=== PATIENT | female | born 1940 | race Caucasian/White ===

== ENCOUNTER → 2016-12-27 | Outpatient (CLI) | payer MEDICARE | LOC: CT 13:00 | DX: M47.816 Spondylosis without myelopathy or radiculopathy, lumbar region (principal); M48.56XA Collapsed vertebra, not elsewhere classified, lumbar region, initial encounter for fracture; M51.37 Other intervertebral disc degeneration, lumbosacral region | CPT/HCPCS: 72131 ==

== ENCOUNTER 2021-01-12 12:19 | Inpatient (IN) | payer MEDICARE ==
[~2021-01-12] VITALS: Ht 165.1 cm; Wt 127.0 kg
[~2021-01-12 12:19] MED LIST: ACIDOPHILUS LACT1 GM MC; BACTRIM DS TAB1 EACH PO; CARBAMAZEPINE100 MG PO; CEFUROXIME250 MG PO; CYMBALTA 30 MG30 MG PO; ECOTRIN81 MG PO; ELIQUIS5 MG PO; FOLIC ACID 1 MG1 MG PO; IPRAT-ALBUT 0.5-3 ML NEB; KEFLEX CAP 500500 MG PO; LEVOFLOXACIN500 MG PO; LIPITOR TAB 2020 MG PO; MYRBETRIQ50 MG PO; NEURONTIN600 MG PO; NORCO 10-325 T1 EACH PO; NORVASC 5 MG TAB5 MG PO; OMNICEF 300 MG300 MG PO; PERCOCET 10-321 EACH PO; TENORMIN 25 MG25 MG PO; TESSALON PERLE100 MG PO; ZESTRIL40 MG PO
[2021-01-12 15:32] LABS: HEMOGLOBIN 16.3 gm/dl (12.3-15.3); RED BLOOD COUNT 5.71 M/UL (4.00-5.10); WHITE BLOOD COUNT 9.5 K/UL (4.5-11.0)
[2021-01-12 16:03] LABS: BUN/CREATININE RATIO 22 (0-10)
--- NOTE | 2021-01-12 23:40 | NUR ---
UNABLE TO OBTAIN ADMISSION AND HOME MEDICATIONS FROM PATIENT DUE TO ALTERED MENTAL STATUS. SPOKE WITH SON KOREY ON THE PHONE AND HE WAS ABLE TO GIVE PT'S HISTORY, ETC. HOWEVER, HE WAS UNABLE TO CONFIRM PT'S MEDICATIONS. THE ONLY MEDICATION HE WAS ABLE TO CONFIRM WAS THE ELIQUIS. KOREY STATED THAT THE PT LIVED ALONE AND HAS A ER MANAGER THAT COMES AND STAYS WITH HER AND MANAGES HER MEDICATIONS. KOREY GAVE ME THE CARETAKERS NAME AND NUMBER AND TOLD ME THAT SHE COULD GIVE ME A LIST OF HER MEDICATIONS. TRIED TO CALL THE ER MANAGER, BUT NO ONE ANSWERED. WILL TRY TO CALL HER BACK.
[2021-01-13 05:35] LABS: HEMOGLOBIN 15.4 gm/dl (12.3-15.3); RED BLOOD COUNT 5.5 M/UL (4.00-5.10)
[2021-01-13 05:47] LABS: BUN/CREATININE RATIO 20 (0-10)
[2021-01-13] MEDS ORDERED: TEGRETOL XR100 MG PO (12:26)
[2021-01-14 06:13] LABS: HEMOGLOBIN 15.9 gm/dl (12.3-15.3); RED BLOOD COUNT 5.58 M/UL (4.00-5.10); WHITE BLOOD COUNT 10.5 K/UL (4.5-11.0)
[2021-01-14 06:32] LABS: BUN/CREATININE RATIO 20 (0-10)
[2021-01-15 05:39] LABS: HEMOGLOBIN 17.5 gm/dl (12.3-15.3); WHITE BLOOD COUNT 11.2 K/UL (4.5-11.0)
[2021-01-15 05:43] LABS: RED BLOOD COUNT 6.18 M/UL (4.00-5.10)
[2021-01-15 05:57] LABS: BUN/CREATININE RATIO 25 (0-10)
[2021-01-16 05:43] LABS: HEMOGLOBIN 17.1 gm/dl (12.3-15.3); RED BLOOD COUNT 6.35 M/UL (4.00-5.10)
[2021-01-16 05:44] LABS: WHITE BLOOD COUNT 14.7 K/UL (4.5-11.0)
[2021-01-16 06:09] LABS: BUN/CREATININE RATIO 40 (0-10)
[2021-01-17 02:50] LABS: HEMOGLOBIN 17.7 gm/dl (12.3-15.3); RED BLOOD COUNT 6.24 M/UL (4.00-5.10); WHITE BLOOD COUNT 13.3 K/UL (4.5-11.0)
[2021-01-17 03:30] LABS: BUN/CREATININE RATIO 61 (0-10)
[2021-01-17 14:31] LABS: BORDETELLA PARAPERTUSSIS Not Detected (Not Detectd); BORDETELLA PERTUSSIS Not Detected (Not Detectd); CHLAMYDIA PNEUMONIAE Not Detected (Not Detectd); CORONAVIRUS HKU1 Not Detected (Not Detectd); CORONAVIRUS NL63 Not Detected (Not Detectd); CORONAVIRUS OC43 Not Detected (Not Detectd); CORONOAVIRUS 229E Not Detected (Not Detectd); HUMAN METAPNEUMOVIRUS Not Detected (Not Detectd); INFLUENZA A Not Detected (Not Detectd); INFLUENZA B Not Detected (Not Detectd); MYCOPLASMA PNEUMONIAE Not Detected (Not Detectd); PARAINFLUENZA VIRUS 1 Not Detected (Not Detectd); PARAINFLUENZA VIRUS 2 Not Detected (Not Detectd); PARAINFLUENZA VIRUS 3 Not Detected (Not Detectd); PARAINFLUENZA VIRUS 4 Not Detected (Not Detectd); RESPIRATORY SYNCYTIAL VIRUS Not Detected (Not Detectd)
[2021-01-17 15:36] LABS: SARS-CoV-2 NOT DETECTED (Not Detectd)
[2021-01-17 15:37] LABS: HUMAN RHINOVIRUS/ENTEROVIRUS DETECTED (Not Detectd)
[2021-01-18 06:01] LABS: HEMOGLOBIN 17.1 gm/dl (12.3-15.3); RED BLOOD COUNT 5.97 M/UL (4.00-5.10); WHITE BLOOD COUNT 11.1 K/UL (4.5-11.0)
[2021-01-18 06:29] LABS: BUN/CREATININE RATIO 77 (0-10)
[2021-01-19 05:36] LABS: HEMOGLOBIN 15.5 gm/dl (12.3-15.3); RED BLOOD COUNT 5.42 M/UL (4.00-5.10); WHITE BLOOD COUNT 10.9 K/UL (4.5-11.0)
[2021-01-19 06:01] LABS: BUN/CREATININE RATIO 63 (0-10)
[2021-01-20 03:13] LABS: BUN/CREATININE RATIO 47 (0-10)
[2021-01-21 05:02] LABS: BUN/CREATININE RATIO 47 (0-10)
[2021-01-22 05:53] LABS: BUN/CREATININE RATIO 48 (0-10)
[2021-01-22] MEDS ORDERED: TRELEGY ELLIPT1 EACH INH (09:43)
[2021-01-22] MEDS ORDERED: MEDROL4 MG PO (09:43)
--- NOTE | 2021-01-22 19:26 | NUR ---
REPORT CALLED TO [facility] WITH [facility].
== END 2021-01-22 18:17 | disposition home or self-care (01) | DRG 689 ==
LOC: ER1 12:19 → PROG CARE 20:29 → MED SURG 4 20:29 → M/S 20:29 → MED SURG 4 22:33 → PROG CARE 01-17 12:07
PROVIDERS: Internal Medicine; Internal Medicine Pulmonary Disease; Physician Assistant; ADMIT Family Medicine
PROC: B24BZZ4 Ultrasonography of Heart with Aorta, Transesophageal (ICD-10-PCS; principal; 2021-01-13)
DX: N30.00 Acute cystitis without hematuria (principal); J18.9 Pneumonia, unspecified organism; J96.21 Acute and chronic respiratory failure with hypoxia; G93.41 Metabolic encephalopathy; J44.0 Chronic obstructive pulmonary disease with (acute) lower respiratory infection; J44.1 Chronic obstructive pulmonary disease with (acute) exacerbation; I50.32 Chronic diastolic (congestive) heart failure; E72.20 Disorder of urea cycle metabolism, unspecified; E66.2 Morbid (severe) obesity with alveolar hypoventilation; I08.1 Rheumatic disorders of both mitral and tricuspid valves; Z20.822 Contact with and (suspected) exposure to COVID-19; I27.20 Pulmonary hypertension, unspecified; I11.0 Hypertensive heart disease with heart failure; I49.5 Sick sinus syndrome; M19.90 Unspecified osteoarthritis, unspecified site; E87.5 Hyperkalemia; L89.322 Pressure ulcer of left buttock, stage 2; I48.0 Paroxysmal atrial fibrillation; F17.210 Nicotine dependence, cigarettes, uncomplicated; Z79.01 Long term (current) use of anticoagulants; Z95.0 Presence of cardiac pacemaker; Z79.82 Long term (current) use of aspirin; Z88.6 Allergy status to analgesic agent; Z83.3 Family history of diabetes mellitus; Z80.1 Family history of malignant neoplasm of trachea, bronchus and lung
CPT/HCPCS: ECHO; 0241U; 36415; 36600; 51701; 70450; 71045; 80048; 80053; 80202; 80307; 81001; 82140; 82550; 82553; 82803; 83605; 83615; 83690; 83735; 83880; 84100; 84484; 85025; 85379; 85610; 85730; 86140; 87040; 87081; 87086; 87633; 93005; 93306; 93970; 94640; 94660; 94664; 94760; 96374; 97110-GP-CQ; 97116-GP-CQ; 97162; 97164; 97530-GP-CQ; 99285; A6212; J0696; J1885; J1940; J2185; J2310; J2920; J3370; J7030; J7070; Q9967